=== PATIENT | female | born 1940 | race Native Hawaiian/Other Pacific Islander ===

== ENCOUNTER 2017-07-29 11:29 | Outpatient (CLI) | payer OTHER ==
[~2017-07-29 11:29] MED LIST: ATEN25TA21 PO; BIOTIN10 MG PO; GLUCOS/CHOND1 TA1 PO; MULTIVITAMI1 PO; Z-PAK PO
== END 2017-07-29 12:30 | disposition home or self-care (01) ==
LOC: MAMMO 11:29
DX: Z12.31 Encounter for screening mammogram for malignant neoplasm of breast (principal)

== ENCOUNTER 2019-07-21 10:25 | Outpatient (CLI) | payer OTHER | END 2019-07-21 20:27 | disposition home or self-care (01) | LOC: MAMMO 10:25 | DX: Z12.31 Encounter for screening mammogram for malignant neoplasm of breast (principal) ==